=== PATIENT | female | born 1965 | race African-American/Black ===

== ENCOUNTER 2022-11-02 21:03 | Emergency (ER) | payer MEDICARE ==
[2022-11-02] MEDS ORDERED: Ketorolac Tromethamine 30 MG/ML VIAL ONE (21:52)
== END 2022-11-02 22:57 | disposition home or self-care (01) ==
LOC: ERS 21:03 → EEVIPCON 21:03 → ERS 22:57
DX: R07.89 Other chest pain (principal); Y04.8XXA Assault by other bodily force, initial encounter
CPT/HCPCS: 71046; J1885

== ENCOUNTER 2022-11-04 13:57 | Emergency (ER) | payer MEDICARE ==
[2022-11-04] MEDS ORDERED: HYDROcodone/Acetaminophen 5/325 mg Tablet ONE (14:33)
[2022-11-04] MEDS ORDERED: Ketorolac Tromethamine 30 MG/ML VIAL ONE (14:33)
== END 2022-11-04 16:29 | disposition home or self-care (01) ==
LOC: ERS 13:57
DX: S20.20XA Contusion of thorax, unspecified, initial encounter (principal); Y04.8XXA Assault by other bodily force, initial encounter
CPT/HCPCS: 71045; 93005; 96374; J1885